=== PATIENT | male | born 1970 | race American Indian/Alaskan Native ===

== ENCOUNTER 2021-10-28 11:15 | Emergency (ER) | payer SELFPAY ==
[2021-10-28] MEDS ORDERED: KETOROLAC 30 MG/1 ML INJ IM ONE (17:03)
[2021-10-28] MEDS ORDERED: dexAMETHasone 20 MG/5 ML VIAL IM ONE (17:03)
--- NOTE | 2021-10-28 17:09 | Emergency Department Report ---
ED Back Pain/Injury HPI - General Chief Complaint: Back Pain/Injury Stated Complaint: back pain Source: patient Limitations: No Limitations - History of Present Illness Initial Comments: 51-year-old male present to the ED complaining of low back pain radiating to the right leg x3 weeks. Patient states that pain is a current 6 out of 10. Patient denies using any prior medication. She states patient denies any trauma, fever, dysuria, drug use or steroid or previous steroid use. Patient is ambulatory. He denies any numbness or tingling. Patient is ambulatory. No acute distress noted. No ill appearance noted. MD Complaint: back pain Similar Symptoms Previously: No Severity scale (0 -10): 6 Consistency: intermittent Improves With: none Associated Symptoms: denies other symptoms - Related Data Previous Rx's Medication Instructions Recorded Last Taken Type Insulin NPH/Regular [NovoLIN 70/30] 28 unit SUB-Q BIDDIAB #2 vial 01/05/20 Unknown Rx Sulfamethoxazole/Trimethoprim 1 each PO BID #28 tablet 01/05/20 Unknown Rx [Bactrim DS TAB] metFORMIN [Glucophage] 500 mg PO BID #60 tablet 01/05/20 Unknown Rx oxyCODONE /ACETAMINOPHEN [Percocet 1 tab PO Q6H PRN #14 tablet 01/05/20 Unknown Rx 5/325 mg] Ibuprofen [Motrin] 800 mg PO Q8HR PRN 15 Days #30 10/28/21 Unknown Rx tablet Allergies Allergy/AdvReac Type Severity Reaction Status Date / Time No Known Allergies Allergy Verified 10/28/21 12:35 ED Review of Systems ROS: Stated complaint: HEMRROIDS Other details as noted in HPI Constitutional: denies: chills, fever Eyes: denies: eye pain, eye discharge, vision change ENT: denies: ear pain, throat pain Respiratory: denies: cough, shortness of breath, wheezing Cardiovascular: denies: chest pain, palpitations Endocrine: no symptoms reported Gastrointestinal: denies: abdominal pain, nausea, diarrhea Genitourinary: denies: urgency, dysuria Musculoskeletal: back pain. denies: joint swelling, arthralgia Skin: denies: rash, lesions Neurological: denies: headache, weakness, paresthesias Psychiatric: denies: anxiety, depression Hematological/Lymphatic: denies: easy bleeding, easy bruising ED Past Medical Hx - Past Medical History Hx Hypertension: Yes Hx Congestive Heart Failure: No Hx Diabetes: Yes Hx Asthma: No Hx COPD: No Hx HIV: No - Social History Smoking Status: Never Smoker - Medications Home Medications: Home Medications Medication Instructions Recorded Confirmed Last Taken Type Insulin NPH/Regular [NovoLIN 70/30] 28 unit SUB-Q BIDDIAB #2 vial 01/05/20 Unknown Rx Sulfamethoxazole/Trimethoprim 1 each PO BID #28 tablet 01/05/20 Unknown Rx [Bactrim DS TAB] metFORMIN [Glucophage] 500 mg PO BID #60 tablet 01/05/20 Unknown Rx oxyCODONE /ACETAMINOPHEN [Percocet 1 tab PO Q6H PRN #14 tablet 01/05/20 Unknown Rx 5/325 mg] Ibuprofen [Motrin] 800 mg PO Q8HR PRN 15 Days #30 10/28/21 Unknown Rx tablet ED Physical Exam - General Limitations: No Limitations General appearance: alert, in no apparent distress - Head Head exam: Present: atraumatic, normocephalic - Eye Eye exam: Present: normal appearance - ENT ENT exam: Present: mucous membranes moist - Neck Neck exam: Present: normal inspection - Respiratory Respiratory exam: Present: normal lung sounds bilaterally. Absent: respiratory distress - Cardiovascular Cardiovascular Exam: Present: regular rate, normal rhythm. Absent: systolic murmur, diastolic murmur, rubs, gallop - GI/Abdominal GI/Abdominal exam: Present: soft, normal bowel sounds - Rectal Rectal exam: Present: deferred - Extremities Exam Extremities exam: Present: normal inspection - Back Exam Back exam: Present: normal inspection - Expanded Back Exam Expanded Back exam: Positive Straight Leg Raise: Right - Neurological Exam Neurological exam: Present: alert, oriented X3 - Psychiatric Psychiatric exam: Present: normal affect, normal mood - Skin Skin exam: Present: warm, dry, intact, normal color. Absent: rash ED Course Vital Signs 10/28/21 12:32 Temperature 98 F Pulse Rate 79 Respiratory 16 Rate Blood Pressure 114/65 [Left] O2 Sat by Pulse 99 Oximetry ED Medical Decision Making - Medical Decision Making 51-year-old male present to the ED complaining of low back pain radiating to the right leg x3 weeks. Patient states that pain is a current 6 out of 10. Patient denies using any prior medication. She states patient denies any trauma, fever, dysuria, drug use or steroid or previous steroid use. Patient is ambulatory. He denies any numbness or tingling. Patient is ambulatory. No acute distress noted. No ill appearance noted. Physical examination patient has a positive right leg straight test. Male escort used to examine the rectal area. No abnormal finding. Rechecked the patient is resting quietly quietly and comfortable and feeling better. I discussed the results of diagnostic study, my clinical impression and the plan for further treatment with the patient. Patient agrees with plan and discharge at this present time. All question addressed. I have given the patient instruction regarding a diagnosis ,expectation ,follow- up and return precaution. I explained to the patient that emergent condition may arise and to return to the ED for new worsen and any new persisting condition. I have explained the importance of following up with the primary care physician or referral physician listed below has instructed. The patient verbalized understanding of discharge instruction. Critical care attestation.: If time is entered above; I have spent that time in minutes in the direct care of this critically ill patient, excluding procedure time. ED Disposition Clinical Impression: Back pain Qualifiers: Back pain location: low back pain Chronicity: acute Back pain laterality: bilateral Sciatica presence: with sciatica Sciatica laterality: sciatica of right side Qualified Code(s): M54.41 - Lumbago with sciatica, right side Disposition: 01 HOME / SELF CARE / HOMELESS Is pt being admited?: No Does the pt Need Aspirin: No Condition: Stable Instructions: Acute Back Pain, Adult, Sciatica, [id number] Additional Instructions: Take medication as prescribed return to ED for any worsening Prescriptions: Ibuprofen [Motrin] 800 mg PO Q8HR PRN 15 Days #30 tablet PRN Reason: Pain, Mild (1-3) Referrals: CAREN ORNELAS MD [Staff Physician] - 3-5 Days Time of Disposition: 17:31
[2021-10-28 18:49] VITALS: BP 138/85
== END 2021-10-28 18:48 | disposition home or self-care (01) ==
LOC: ED 11:15
DX: M54.50 Low back pain, unspecified (principal); I10 Essential (primary) hypertension; E11.9 Type 2 diabetes mellitus without complications; Z79.899 Other long term (current) drug therapy
CPT/HCPCS: 96372; 99282; J1100; J1885

== ENCOUNTER 2021-11-02 12:38 | Emergency (ER) | payer SELFPAY ==
[2021-11-02 13:40] VITALS: BP 102/52
--- NOTE | 2021-11-02 16:57 | Emergency Department Report ---
ED Recheck HPI - General Chief Complaint: Extremity Problem,Nontraumatic Stated Complaint: RT SIDE PAIN Time Seen by Provider: 11/02/21 16:52 Source: patient Mode of arrival: Ambulatory Limitations: No Limitations - History of Present Illness Initial Comments: Patient is a 51-year-old male that comes to the emergency room for his right- sided sciatica. He was seen here on Monday for the same. He was given medications that he is now run out of and returns to the ER. He has not followed up as instructed by the provider. I had a long discussion with the patient regarding the use of steroids over time and encouraged him to follow-up as he has been instructed for definitive care and management of his sciatic pain. He verbalizes understanding. Patient has no new symptoms. He has no fall or trauma. Patient denies any dysuria, abdominal pain, nausea vomiting or diarrhea. Patient is ambulatory neurologically intact on exam MD Complaint: other -: Gradual, week(s) Returns Today for: other Symptoms Since Prior Visit: no new symptoms Associated Symptoms: none - Related Data Previous Rx's Medication Instructions Recorded Last Taken Type Insulin NPH/Regular [NovoLIN 70/30] 28 unit SUB-Q BIDDIAB #2 vial 01/05/20 Unknown Rx metFORMIN [Glucophage] 500 mg PO BID #60 tablet 01/05/20 Unknown Rx Cyclobenzaprine [Flexeril] 10 mg PO TID PRN #10 tablet 11/02/21 Unknown Rx Ibuprofen [Motrin] 800 mg PO Q8HR PRN #30 tablet 11/02/21 Unknown Rx methylPREDNISolone [Medrol 4MG 4 mg PO FS #1 tab.ds.pk 11/02/21 Unknown Rx DOSEPAK (21 tabs)] Allergies Allergy/AdvReac Type Severity Reaction Status Date / Time No Known Allergies Allergy Verified 10/28/21 12:35 ED Review of Systems ROS: Stated complaint: RT SIDE PAIN Other details as noted in HPI Comment: All other systems reviewed and negative ED Past Medical Hx - Past Medical History Previous Medical History?: Yes Hx Hypertension: Yes Hx Congestive Heart Failure: No Hx Diabetes: Yes Hx Asthma: No Hx COPD: No Hx HIV: No - Surgical History Past Surgical History?: No - Family History Family history: no significant - Social History Smoking Status: Never Smoker Substance Use Type: None - Medications Home Medications: Home Medications Medication Instructions Recorded Confirmed Last Taken Type Insulin NPH/Regular [NovoLIN 70/30] 28 unit SUB-Q BIDDIAB #2 vial 01/05/20 Unknown Rx metFORMIN [Glucophage] 500 mg PO BID #60 tablet 01/05/20 Unknown Rx Cyclobenzaprine [Flexeril] 10 mg PO TID PRN #10 tablet 11/02/21 Unknown Rx Ibuprofen [Motrin] 800 mg PO Q8HR PRN #30 tablet 11/02/21 Unknown Rx methylPREDNISolone [Medrol 4MG 4 mg PO FS #1 tab.ds.pk 11/02/21 Unknown Rx DOSEPAK (21 tabs)] ED Physical Exam - General Limitations: No Limitations General appearance: alert, in no apparent distress - Head Head exam: Present: atraumatic, normocephalic - Eye Eye exam: Present: normal appearance - ENT ENT exam: Present: mucous membranes moist - Neck Neck exam: Present: normal inspection - Respiratory Respiratory exam: Present: normal lung sounds bilaterally. Absent: respiratory distress - Cardiovascular Cardiovascular Exam: Present: regular rate, normal rhythm. Absent: systolic murmur, diastolic murmur, rubs, gallop - GI/Abdominal GI/Abdominal exam: Present: soft, normal bowel sounds - Rectal Rectal exam: Present: deferred - Extremities Exam Extremities exam: Present: normal inspection - Back Exam Back exam: Present: normal inspection - Neurological Exam Neurological exam: Present: alert, oriented X3 - Psychiatric Psychiatric exam: Present: normal affect, normal mood - Skin Skin exam: Present: warm, dry, intact, normal color. Absent: rash ED Course Vital Signs 11/02/21 13:37 Temperature 98.6 F Pulse Rate 88 Respiratory 20 Rate Blood Pressure 102/52 O2 Sat by Pulse 98 Oximetry ED Recheck MDM - Core Measures Measure Exclusions: not indicated - Medical Decision Making Patient has acute on chronic sciatica pain. He was seen here recently. Has run out of his medications. He has no fall or trauma. He has classic sciatica pain with a positive straight leg raise on the right. Patient being discharged home with discharge plan of care including diet, activity, medications and follow-up. He verbalizes understanding of plan of care Vital Signs 11/02/21 13:37 Temperature 98.6 F Pulse Rate 88 Respiratory 20 Rate Blood Pressure 102/52 O2 Sat by Pulse 98 Oximetry Critical care attestation.: If time is entered above; I have spent that time in minutes in the direct care of this critically ill patient, excluding procedure time. ED Disposition Clinical Impression: Sciatica Qualifiers: Laterality: right Qualified Code(s): M54.31 - Sciatica, right side Disposition: 01 HOME / SELF CARE / HOMELESS Is pt being admited?: No Does the pt Need Aspirin: No Condition: Stable Instructions: Radicular Pain Additional Instructions: WARM BATHS AND COMPRESSES FOLLOW UP WITH ORTHO MD WE DISCUSSED MEDS ORDERED MONITOR BLOOD GLUCOSE WHILE ON MEDS DO NOT DRIVE WHILE TAKING FLEXERIL Prescriptions: Cyclobenzaprine [Flexeril] 10 mg PO TID PRN #10 tablet PRN Reason: Muscle Spasm methylPREDNISolone [Medrol 4MG DOSEPAK (21 tabs)] 4 mg PO FS #1 tab.ds.pk Ibuprofen [Motrin] 800 mg PO Q8HR PRN #30 tablet PRN Reason: Pain, Moderate (4-6) Referrals: ALLAN WHITTINGTON MD [Primary Care Provider] - 3-5 Days CAREN ORNELAS MD [Staff Physician] - 3-5 Days ALEXANDREA HANNA MD [Staff Physician] - 3-5 Days RONNY SAMPSON MD [Staff Physician] - 3-5 Days Time of Disposition: 17:21
== END 2021-11-02 19:19 | disposition home or self-care (01) ==
LOC: ED 12:38
DX: M54.31 Sciatica, right side (principal); I10 Essential (primary) hypertension; E11.9 Type 2 diabetes mellitus without complications; Z79.899 Other long term (current) drug therapy
CPT/HCPCS: 99282